=== PATIENT | female | born 1990 ===

== ENCOUNTER 2017-12-02 07:56 | Emergency (ER) | payer MEDICAID ==
[2017-10-12 06:47] VITALS: Ht 160 cm; Wt 11.3 kg
[~2017-12-02] VITALS: Ht 160 cm; Wt 11.3 kg
[~2017-12-02 07:56] MED LIST: AMOX-362 PO; AZIT-1 PO; Acetaminophen/Hydrocodone PO; BENZ200C15 PO; CALC-515 PO; CETI5TAB41 PO; CIPR-344 PO; CLI150 PO; CYCL10TA29 PO; DIC75 PO; HYDR-3083 PO; HYDR-3104 FT; HYDR-4309 PO; IBU800 PO; IBUP600T22 PO; IBUP800T37 PO; KET10 PO; LOR5/325 PO; METO-733 PO; NAPR220C12 PO; NIF10 PO; NIFE10CA38 PO; NO ROUTINE MEDS; OMEP-218 PO; ONDA4TAB PO; PEN250 PO; PENI-24 PO; PNV1TABL92 PO; PREN-119 PO; PREN-127 PO; PREN-85 PO; PROM-110 PO; TRA50 PO
[2017-12-02] MEDS ORDERED: ACETAMINOPHEN 500 MG TAB PO ONE (08:15)
--- NOTE | 2017-12-02 08:16 | ER Report ---
History and Physical Time Seen By MD: 08:12 Hx. of Stated Complaint: PT REPORTS SORE THROAT SINCE THIS MORNING HPI/ROS CHIEF COMPLAINT: Sore throat HISTORY OF PRESENT ILLNESS: 27-year-old female presents with generalized malaise and sore throat worse with swallowing started at 2 in the morning associated with feverish feeling no thermometer at home denies chest pain or shortness of breath denies abdominal pain or urinary symptoms. Denies cough. Denies known infectious exposure. Her baby has not been sick. No vomiting. REVIEW OF SYSTEMS: Respiratory: No cough, no dyspnea. Cardiovascular: No chest pain, no palpitations. Gastrointestinal: No vomiting, no abdominal pain. Musculoskeletal: No back pain. Allergies: Coded Allergies: oxycodone HCl (Verified Allergy, Severe, HIVES, 12/02/17) Home Meds Discontinued Reported Medications Ondansetron (ZOFRAN ODT) 4 Mg Tab.rapdis, 4 MG PO Q12H, TAB.BEVERLY 09/17/17 Omeprazole Magnesium (PRILOSEC OTC) 20 Mg Tablet.dr, 1 TAB PO BID, TAB 09/17/17 Vits W-Ca,Fe,Fa(<1MG) ( VITAMINS) 1 Each Tablet, 1 EACH PO DAILY, TAB 09/17/17 Discontinued Scripts Ibuprofen (IBUPROFEN) 800 Mg Tablet, 1 TAB PO Q8H, #30 TAB 0 Refills Take with food every 8 hours. Prov:ANT ODELL MD 10/13/17 [Apap/Hydrocodone 325/7.5 Tab] 7.5 MG/325 MG TAB No Conflict Check, 1-2 EACH PO Q4-6H Y for PAIN, #30 TAB Prov:ANT ODELL MD 10/13/17 Hx Smoking: No Smoking Status: Never Smoker Exposure to Second Hand Smoke?: No Hx Substance Use Disorder: No Hx Alcohol Use: No Constitutional Vital Sign - Last 24 Hours 12/02/17 12/02/17 12/02/17 12/02/17 07:59 08:00 08:01 08:06 Temp 98.7 Pulse 77 71 80 Resp 16 B/P (MAP) 138/90 (106) 138/90 Pulse Ox 95 95 O2 Delivery Room Air 12/02/17 08:11 Pulse 71 Pulse Ox 95 Physical Exam General Appearance: The patient is alert, has no immediate need for airway protection and no current signs of toxicity. No acute distress Eyes: Pupils equal and round no injection. HEENT: Normal tympanic membranes bilaterally mild posterior pharyngeal erythema without exudate no peritonsillar abscess or uvular shift. The tonsils are not clearly visualized Respiratory: Chest is non tender, lungs are clear to auscultation. Cardiac: regular rate and rhythm no murmurs gallops or rubs Gastrointestinal: Abdomen is soft and non tender, no masses, bowel sounds normal. Musculoskeletal: Neck: Neck is supple and non tender. Extremities have full range of motion and are non tender. Skin: No rashes or lesions. No edema DIFFERENTIAL DIAGNOSIS: After history and physical exam differential diagnosis was considered for pharyngitis of viral strep pharyngitis influenza other viral upper respiratory illness no signs of pneumonia or other serious bacterial illness Medical Decision Making Data Points Laboratory Hematology Test 12/02/17 08:07 Influenza Virus Type A (PCR) Negative (NEGATIVE) Influenza Virus Type B (PCR) Negative (NEGATIVE) Group A Streptococcus Screen Positive (NEGATIVE) Chemistry Test 12/02/17 08:07 Influenza Virus Type A (PCR) Negative (NEGATIVE) Influenza Virus Type B (PCR) Negative (NEGATIVE) Group A Streptococcus Screen Positive (NEGATIVE) ED Course/Re-evaluation ED Course Plan of care agreed upon prior to orders placed. Benefits of Tylenol for generalized malaise were discussed and patient wants to try some here and she has not taken any medications at home so far. Re-evaluation Positive strep test discussed prescription for antibiotics will be provided. Home care follow-up and reasons to return were discussed. Decision to Disposition Date: Dec 02, 2017 Decision to Disposition Time: 09:10 Depart Departure Latest Vital Signs Vital Signs Date Time Temp Pulse Resp B/P (MAP) Pulse Ox O2 Delivery O2 Flow Rate FiO2 12/02/17 08:11 71 95 12/02/17 08:00 98.7 16 138/90 Room Air Impression: Primary Impression: Strep pharyngitis Condition: Improved Disposition: HOME OR SELF-CARE Referrals: ANT ODELL MD (PCP) New Scripts Amoxicillin (AMOXICILLIN) 500 Mg Capsule 1 CAP PO Q8H for 10 Days, #30 CAPSULE 0 Refills Prov: REINA CASTRO MD 12/02/17 Patient Instructions: Strep Throat (ED) REINA CASTRO MD Dec 02, 2017 08:16
[2017-12-02] MEDS ORDERED: AMOX-362 PO (09:11)
[2017-12-02 09:13] VITALS: BP 126/86
== END 2017-12-02 09:15 | disposition home or self-care (01) ==
LOC: ER 07:57
DX: J02.0 Streptococcal pharyngitis (principal)
CPT/HCPCS: 87081; 87502; 87880; 99283

== ENCOUNTER 2017-12-05 20:31 | Emergency (ER) | payer MEDICAID ==
[2017-10-12 06:47] VITALS: Ht 160 cm; Wt 59.0 kg
[~2017-12-05] VITALS: Ht 160 cm; Wt 59.0 kg
--- NOTE | 2017-12-05 20:35 | ER Report ---
History and Physical Time Seen By MD: 20:34 HPI/ROS CHIEF COMPLAINT: Vomiting HISTORY OF PRESENT ILLNESS: 27-year-old female presents to the ER with vomiting over the last 6 hours. 3 days ago. She was seen here in the ER and has a positive strep test and was placed on antibiotics. She is breast-feeding. Patient denies diarrhea, fever or chills. Patient denies dysuria. REVIEW OF SYSTEMS: Respiratory: No cough, no dyspnea. Cardiovascular: No chest pain, no palpitations. Gastrointestinal: As above Musculoskeletal: No back pain. Allergies: Coded Allergies: oxycodone HCl (Verified Allergy, Severe, HIVES, 12/05/17) Home Meds Active Scripts Promethazine Hcl (PROMETHAZINE HCL) 25 Mg Tablet, 25 MG PO Q4H Y for NAUSEA/ VOMITING, #14 TAB Prov:NICKI LAUREANO DO 12/05/17 Ondansetron (ZOFRAN ODT) 4 Mg Tab.rapdis, 4 MG PO every 6 hours Y for NAUSEA/ VOMITING, #12 TAB TAKE 1 TABLET BY MOUTH EVERY 12 HOURS Prov:NICKI LAUREANO DO 12/05/17 Amoxicillin (AMOXICILLIN) 500 Mg Capsule, 1 CAP PO Q8H for 10 Days, #30 CAPSULE 0 Refills Prov:REINA CASTRO MD 12/02/17 Discontinued Reported Medications Ondansetron (ZOFRAN ODT) 4 Mg Tab.rapdis, 4 MG PO Q12H, TAB.BEVERLY 09/17/17 Omeprazole Magnesium (PRILOSEC OTC) 20 Mg Tablet.dr, 1 TAB PO BID, TAB 09/17/17 Vits W-Ca,Fe,Fa(<1MG) ( VITAMINS) 1 Each Tablet, 1 EACH PO DAILY, TAB 09/17/17 Discontinued Scripts Ibuprofen (IBUPROFEN) 800 Mg Tablet, 1 TAB PO Q8H, #30 TAB 0 Refills Take with food every 8 hours. Prov:ANT ODELL MD 10/13/17 [Apap/Hydrocodone 325/7.5 Tab] 7.5 MG/325 MG TAB No Conflict Check, 1-2 EACH PO Q4-6H Y for PAIN, #30 TAB Prov:ANT ODELL MD 10/13/17 Reviewed Nurses Notes: Yes Old Medical Records Reviewed: Yes Hx Smoking: No Smoking Status: Never Smoker Exposure to Second Hand Smoke?: No Hx Substance Use Disorder: No Hx Alcohol Use: No Constitutional Vital Sign - Last 24 Hours 12/05/17 12/05/17 12/05/17 12/05/17 20:44 20:50 21:00 21:05 Temp 99.1 Pulse 97 89 100 Resp 16 B/P (MAP) 143/82 125/90 (102) Pulse Ox 94 94 93 12/05/17 12/05/17 12/05/17 12/05/17 21:20 21:30 21:35 21:50 Pulse 90 93 96 B/P (MAP) ???/??? (1665) Pulse Ox 93 88 96 12/05/17 12/05/17 22:00 22:05 Pulse 91 B/P (MAP) ???/??? (1665) Pulse Ox 95 Physical Exam General Appearance: The patient is alert, has no immediate need for airway protection and no current signs of toxicity. Moderate distress, slightly pale appearing, vital signs stable, afebrile HEENT: Pupils equal and round no injection. Oropharynx with moderate redness or exudative tonsillitis. Respiratory: Chest is non tender, lungs are clear to auscultation. Cardiac: regular rate and rhythm Gastrointestinal: Abdomen is soft and non tender, no masses, bowel sounds normal. Musculoskeletal: Neck: Neck is supple and non tender. Extremities have full range of motion and are non tender. Skin: No rashes or lesions. DIFFERENTIAL DIAGNOSIS: After history and physical exam differential diagnosis was considered for vomiting in a child including but not limited to gastroenteritis, other infectious causes such as pharyngitis, pneumonia, urinary tract infection, also medication side effect, and appendicitis. Medical Decision Making ED Course/Re-evaluation ED Course Patient was admitted to an examination room. H&P was done. The differential diagnoses was considered. On clinical examination, patient is a benign nonsurgical abdomen. She's been vomiting likely secondary to strep pharyngitis. Patient was given Zofran sublingually and then Phenergan. She consumed a Popsicle without emesis. She'll be discharged home on Zofran and Phenergan. Decision to Disposition Date: Dec 05, 2017 Decision to Disposition Time: 21:49 Depart Departure Latest Vital Signs Vital Signs Date Time Temp Pulse Resp B/P (MAP) Pulse Ox O2 Delivery O2 Flow Rate FiO2 12/05/17 22:05 91 95 12/05/17 22:00 ???/??? (1665) 12/05/17 20:44 99.1 16 Impression: Primary Impression: Vomiting Additional Impression: Strep pharyngitis Condition: Improved Disposition: HOME OR SELF-CARE Referrals: ANT ODELL MD (PCP) New Scripts Promethazine Hcl (PROMETHAZINE HCL) 25 Mg Tablet 25 MG PO Q4H Y for NAUSEA/VOMITING, #14 TAB Prov: NICKI LAUREANO DO 12/05/17 Ondansetron (ZOFRAN ODT) 4 Mg Tab.rapdis 4 MG PO every 6 hours Y for NAUSEA/VOMITING, #12 TAB TAKE 1 TABLET BY MOUTH EVERY 12 HOURS Prov: NICKI LAUREANO DO 12/05/17 Patient Instructions: Acute Nausea and Vomiting (ED) Additional Instructions: Follow clear liquid diet for 24 hours, increase sugary fluids and/or popsicles Problem Qualifiers Primary Impression: Vomiting Vomiting type: unspecified Vomiting Intractability: intractable Nausea presence: with nausea Qualified Codes: R11.2 - Nausea with vomiting, unspecified NICKI LAUREANO DO Dec 05, 2017 20:35
[2017-12-05] MEDS ORDERED: PROMETHAZINE HCL 25 MG TAB PO ONE (20:55)
[2017-12-05] MEDS ORDERED: ONDANSETRON 4 MG ODT TABDP SL ONE (20:55)
[2017-12-05] MEDS ORDERED: ONDA4TAB PO (21:52)
[2017-12-05] MEDS ORDERED: PROM-110 PO (21:52)
[2017-12-05] MEDS ORDERED: PROMETHAZINE HCL 25 MG TAB TH 2 TAB/BOTTLE PO ONE (21:55)
[2017-12-05] MEDS ORDERED: ONDANSETRON 4 MG ODT TH SL ONE (21:55)
== END 2017-12-05 22:27 | disposition home or self-care (01) ==
LOC: ER 20:52
DX: J02.0 Streptococcal pharyngitis (principal)
CPT/HCPCS: 99282; Q0169; S0119

== ENCOUNTER 2018-04-05 02:57 | Day surgery (SDC) | payer MEDICAID ==
[2017-10-12 06:47] VITALS: Ht 160 cm; Wt 59.9 kg
--- NOTE | 2018-04-04 23:11 | HISTORY AND PHYSICAL ---
DATE OF ADMISSION: April 05, 2018 CHIEF COMPLAINT Undesired fertility. HISTORY OF PRESENT ILLNESS Patient is approximately a 28-year-old 4, para 4, with undesired fertility. Had discussed options for long-acting reversible contraceptives and other forms of contraception. The patient no longer desires fertility, understands the risks of failure of procedure as well as the risks of surgery, and desires to proceed with laparoscopic bilateral tubal ligation. CURRENT MEDICATIONS * Ibuprofen as needed. ALLERGIES OXYCODONE gives her hives. REVIEW OF SYSTEMS GENITOURINARY: Per HPI. GENERAL, SKIN, EYES, EARS, NOSE, MOUTH, NECK, RESPIRATORY, CARDIOVASCULAR, GASTROINTESTINAL, NEUROLOGIC: All reviewed and noncontributory. PAST MEDICAL HISTORY * HPV. * Allergies. PAST SURGICAL HISTORY * She has had four C-sections. FAMILY HISTORY Noncontributory. SOCIAL HISTORY She does not drink alcohol. She is a nonsmoker. No illicit drug use. She is a homemaker. PHYSICAL EXAMINATION VITAL SIGNS: BP 138/80, temp 98.4, weight 138, height 62-1/2 inches. CONSTITUTIONAL: Well nourished, well developed female in no distress. SKIN: Without rash or lesions. NECK: Supple, without masses. HEART: Regular rate and rhythm. LUNGS: Clear to auscultation bilaterally. ABDOMEN: Soft, nontender, nondistended. Bowel sounds positive. EXTREMITIES: Nontender, no edema. PSYCHIATRIC: Alert and oriented times three. Normal mood and affect. PELVIC: Normal external female genitalia. Well-estrogenized vaginal lining. No adnexal masses. Uterus normal size, nontender. No lesions, and no abnormal discharge. ASSESSMENT AND PLAN Undesired fertility. Plan to perform laparoscopic bilateral tubal ligation via Falope ring. [facility]ENTERPepe
[~2018-04-05] VITALS: Ht 160 cm; Wt 59.9 kg
[2018-04-05 06:00] VITALS: BP 134/95
[2018-04-05 06:22] LABS: PLATELET COUNT, AUTOMATED 282 K/uL (150-450)
[2018-04-05] MEDS ORDERED: FAMOTIDINE 20 MG TAB PO ONE (06:30)
[2018-04-05] MEDS ORDERED: NORMOSOL R SOLN(*) 1000 ML BAG 1,000 ML IV PRN (06:30)
[2018-04-05] MEDS ORDERED: cefOXitin SOD 2 GM VIAL 2 GM in NS(*) 0.9% 100 ML BAG 100 ML IVPB ONE (06:30)
[2018-04-05] MEDS ORDERED: LIDOCAINE/SOD BICARB 8.4% SYR ID ONE (06:30)
[2018-04-05] MEDS ORDERED: CELECOXIB 200 MG CAP PO ONE (06:30)
[2018-04-05] MEDS ORDERED: ROPIVACAINE 0.2% 20 ML VIAL ONE (06:54)
[2018-04-05] MEDS ORDERED: fentaNYL CITR 100 MCG/2 ML AMP ONE ×3 (07:05→08:33)
[2018-04-05] MEDS ORDERED: LIDOCAINE MPF 1% 5 ML VIAL ONE (07:07)
[2018-04-05] MEDS ORDERED: ONDANSETRON 4 MG/2 ML VIAL ONE (07:07)
[2018-04-05] MEDS ORDERED: PROPOFOL EMUL(*) 10MG/ML 20 ML 20 ML ONE (07:07)
[2018-04-05] MEDS ORDERED: PROPOFOL EMUL(*) 10MG/ML 20 ML 60 ML ONE (07:09)
[2018-04-05] MEDS ORDERED: REMIFENTANIL HCL 1 MG VIAL ONE (07:11)
[2018-04-05] MEDS ORDERED: DEXAMETHASONE SOD 4 MG/ML VIAL ONE (07:13)
--- NOTE | 2018-04-05 07:20 | Post Operative Note ---
Operative Note - MIS MANAGER Operative Day Date: Apr 05, 2018 Time: 07:45 Physicians Surgeon: CASS Anesthesia: [id number] Diagnosis Pre-Op Diagnosis: UNDESIRED FERTILITY Post-Op Diagnosis: SAME Procedure Findings: UTERUS 6X5 CM NO ADNEXAL MASSES [id number] Procedure(s): LSCOPE BTL VIA FALLOPE RING Complications: 0 Fluids Fluids: 1000 CC NR IV Estimated Blood Loss: MINIMAL Dictated Date OP Note Dictated: Apr 05, 2018 Time OP Note Dictated: 08:12 Copies to: ANT ODELL MD, JOHN MD Apr 05, 2018 07:20
[2018-04-05] MEDS ORDERED: IBUP800T37 PO (07:22)
[2018-04-05] MEDS ORDERED: HYDR2TAB4 PO (07:22)
[2018-04-05] MEDS ORDERED: ONDA4TAB97 PO (07:22)
--- NOTE | 2018-04-05 07:25 | OB/GYN Discharge Summary ---
Discharge Summary Reason for Hosp/Final Diag: (1) Status post laparoscopic procedure Hospital Course & Plan: UNDESIRED FERTILITY, LSCOPE BTL PERFORMED, TOLERATED WELL Lates Vital Signs Vital Signs Date Time Temp Pulse Resp B/P (MAP) Pulse Ox O2 Delivery O2 Flow Rate FiO2 04/05/18 06:00 98.3 67 16 134/95 (108) 95 Room Air Weight (Pounds): 132 Result Diagram: 04/05/18612 Condition: Improved Discharge: Home, Self [facility] Meds Active Scripts Ondansetron Hcl (ZOFRAN) 4 Mg Tablet, 1 TAB PO Q6H Y for NAUSEA/VOMITING, #20 TAB 1 Refill Prov:ANT DELGADO MD 04/05/18 Ibuprofen (IBUPROFEN) 800 Mg Tablet, 1 TAB PO Q8H, #30 TAB 0 Refills Take with food every 8 hours. Prov:ANT DELGADO MD 04/05/18 Hydromorphone Hcl (HYDROMORPHONE HCL) 2 Mg Tablet, 2-4 MG PO Q4H for PAIN, #20 TAB 0 Refills Prov:ANT DELGADO MD 04/05/18 Discontinued Scripts Promethazine Hcl (PROMETHAZINE HCL) 25 Mg Tablet, 25 MG PO Q4H Y for NAUSEA/ VOMITING, #14 TAB Prov:NICKI LAUREANO DO 12/05/17 Ondansetron (ZOFRAN ODT) 4 Mg Tab.rapdis, 4 MG PO every 6 hours Y for NAUSEA/ VOMITING, #12 TAB TAKE 1 TABLET BY MOUTH EVERY 12 HOURS Prov:NICKI LAUREANO DO 12/05/17 Amoxicillin (AMOXICILLIN) 500 Mg Capsule, 1 CAP PO Q8H for 10 Days, #30 CAPSULE 0 Refills Prov:REINA CASTRO MD 12/02/17 Follow up with: Dr. Delgado [phone] Follow up in: 2 wks PO Discharge Diet: As Tolerates Discharge Activity: Pelvic Rest Copies to: ANT DELGADO MD, JOHN MD Apr 05, 2018 07:25
[2018-04-05] MEDS ORDERED: SUGAMMADEX SOD 200 MG/2 ML SDV ONE (07:51)
[2018-04-05] MEDS ORDERED: ROCURONIUM BROM 10 MG/ML 5 ML ONE (08:00)
[2018-04-05] MEDS ORDERED: LR(*) 1000 ML BAG 1,000 ML IV ONE (08:04)
[2018-04-05] MEDS ORDERED: HYDROmorphone HCL 2 MG TAB PO PRN (08:05)
[2018-04-05] MEDS ORDERED: METOCLOPRAMIDE 10 MG/2 ML SDV IVP PRN (08:05)
[2018-04-05] MEDS ORDERED: MIDAZOLAM 2 MG/2 ML VIAL IVP PRN (08:15)
[2018-04-05] MEDS ORDERED: IBUPROFEN 800 MG TAB PO SCH ×2 (09:00→17:00)
--- NOTE | 2018-04-05 09:13 | OPERATIVE REPORT 1 ---
EVENT DATE: 04/05/18 SURGEON: Ramesh Delgado M.D. ANESTHESIOLOGIST: _ ANESTHESIA: General PREOPERATIVE DIAGNOSIS 1. End desired fertility. POSTOPERATIVE DIAGNOSIS 1. End desired fertility. PROCEDURE PERFORMED 1. Laparoscopic bilateral tubal ligation via Falope ring. ESTIMATED BLOOD LOSS: Minimal. COMPLICATIONS: None. FLUIDS: 1000 cc of normal saline. INDICATIONS: The patient is a 28 year old 4 desired fertility. I had discussed options with patient and she no longer desires fertility and wished to proceed with permanent sterilization. Understands risk of failure as well as risk of surgery and wishes to proceed. FINDINGS: Uterus 6 x 5 cm. No adnexal masses. DESCRIPTION OF PROCEDURE: After informed consent was obtained the patient was taken to the operating room with the IV running, placed in supine position where general anesthesia was obtained without difficulty. She was then placed in [facility] stirrups, examined under anesthesia with the above findings, prepped and draped in the usual fashion. A side-out speculum was placed into the vagina, cervix grasped with a single tooth tenaculum. The uterus sounded to 7 cm. #6 Yessy uterine manipulator was advanced into the uterine cavity ti provide a means to manipulate the uterus. The remainder of the instruments were removed from the vagina. Legs were lowered. Attention then turned to the abdomen. 0.2 Naropin was infiltrated into the umbilicus. A skin incision was made with the scalpel. Veress needle was advanced into the abdominal cavity. Normal CO2 filling pressures were noted. After adequate insufflation a 5 mm bladeless trocar was advanced into the abdomen under laparoscopic guidance. Intraabdominal placement was confirmed by laparoscopy and no injuries were noted at the time of entry. A #8 port was then placed in a similar fashion after 0.2 Naropin infiltrated in the skin incision. Skin incision was made with the scalpel and the 8 mm bladeless trocar was advanced under direct visualization. After this was placed the patient was placed in Trendelenburg positioning. Bowel was allowed to escape from the pelvis. Identification of the tubes and ovaries revealed normal anatomy, normal appearing uterus, no abnormalities were noted in the abdomen or pelvis. The Falope ring applicator was then used to grasp the mid portion of the left tube and the tube was drawn into the Falope ring applicator and the Falope ring applied. The same procedure was performed on the right, grasping the mid portion of the tube, drawing the tube into the Falope ring applicator. The Falope ring was applied. Excellent placement was noted and the gas was allowed to escape from the abdomen. The patient was taken out of Trendelenburg positioning. All instruments were removed from the abdomen. The skin incisions were closed with 4/0 Monocryl and Dermabond. The patient was taken out of the [facility], awakened from anesthesia, and taken to the recovery room in stable condition. MARIO
[2018-04-05 09:35] VITALS: BP 147/109
[2018-04-05 09:55] VITALS: BP 144/94
[2018-04-05 09:57] VITALS: BP 129/84
[2018-04-05] MEDS ORDERED: KETOROLAC 30 MG/ML VIAL IVP ONE (10:25)
[2018-04-05] MEDS ORDERED: PROMETHAZINE 25 MG/ML 1 ML AMP ONE (10:41)
== END 2018-04-05 09:39 | disposition home or self-care (01) ==
LOC: OR 02:57
PROVIDERS: ATTEND Obstetrics & Gynecology
DX: Z30.2 Encounter for sterilization (principal); Z88.5 Allergy status to narcotic agent; Z88.8 Allergy status to other drugs, medicaments and biological substances
CPT/HCPCS: 36415; 58671; 84703; 85025; J0694; J1100; J1885; J2001; J2250; J2405; J2550; J2704; J2795; J3010; J7050

== ENCOUNTER 2018-04-27 00:09 | Emergency (ER) | payer MEDICAID ==
[2017-10-12 06:47] VITALS: Wt 59.9 kg
[~2018-04-27 00:09] MED LIST changes: +HYDR2TAB4 PO; +ONDA4TAB97 PO
--- NOTE | 2018-04-27 00:13 | ER Report ---
History and Physical Time Seen By MD: 00:13 HPI/ROS CHIEF COMPLAINT: Right lower toothache HISTORY OF PRESENT ILLNESS: 28-year-old female resents ambulatory to the ER complaining of right lower toothache for 2 days. It was unbearable tonight she is unable to sleep. She is here with her 6-month-old infant child from her recent delivery. She is breast-feeding. He notes 9/10 throbbing pain unrelieved with ibuprofen orally. Patient notes no fever or chills. She denies difficulty swallowing or breathing. He reports the right lower tooth has previously had a filling has been throbbing since 2 days ago. Patient notes no nausea or vomiting. REVIEW OF SYSTEMS: Respiratory: No cough, no dyspnea. Cardiovascular: No chest pain, no palpitations. Gastrointestinal: No vomiting, no abdominal pain. Musculoskeletal: No back pain. Allergies: Coded Allergies: oxycodone HCl (Verified Allergy, Severe, HIVES, 04/27/18) Home Meds Active Scripts Hydromorphone Hcl (DILAUDID) 2 Mg Tablet, 2 MG PO Q4H Y for PAIN, #12 Prov:NICKI LAUREANO DO 04/27/18 Amoxicillin (AMOXICILLIN) 500 Mg Capsule, 1 CAP PO Q8H for infection, #30 CAPSULE Prov:NICKI LUAREANO DO 04/27/18 Reported Medications Escitalopram Oxalate (LEXAPRO) 20 Mg Tablet, 10 MG PO QDAY, TAB 04/27/18 Discontinued Scripts Hydrocodone Bit/Acetaminophen (NORCO 5-325 TABLET) 1 Each Tablet, 1-2 EACH PO Q4H Y for PAIN, #15 TAB Prov:NICKI LAUREANO DO 04/27/18 Ondansetron Hcl (ZOFRAN) 4 Mg Tablet, 1 TAB PO Q6H Y for NAUSEA/VOMITING, #20 TAB 1 Refill Prov:ANT ODELL MD 04/05/18 Ibuprofen (IBUPROFEN) 800 Mg Tablet, 1 TAB PO Q8H, #30 TAB 0 Refills Take with food every 8 hours. Prov:ANT ODELL MD 04/05/18 Hydromorphone Hcl (HYDROMORPHONE HCL) 2 Mg Tablet, 2-4 MG PO Q4H for PAIN, #20 TAB 0 Refills Prov:ANT ODELL MD 04/05/18 Reviewed Nurses Notes: Yes Old Medical Records Reviewed: Yes Hx Smoking: No Smoking Status: Never Smoker Exposure to Second Hand Smoke?: No Hx Substance Use Disorder: No Hx Alcohol Use: No Constitutional Vital Sign - Last 24 Hours 04/27/18 04/27/18 00:14 01:34 Temp 97.7 Pulse 67 84 Resp 16 16 B/P (MAP) 140/77 131/78 (95) Pulse Ox 92 94 O2 Delivery Room Air Room Air Physical Exam General Appearance: The patient is alert, has no immediate need for airway protection and no current signs of toxicity. Vital signs stable, afebrile, pulse ox normal, moderate distress HEENT: Pupils equal and round no injection. TMs normal, TMJs nontender, examination of the oropharynx reveals a tooth that is tender to palpation with a tongue blade at position #31 with multiple fillings in it Respiratory: Chest is non tender, lungs are clear to auscultation. Cardiac: regular rate and rhythm Gastrointestinal: Abdomen is soft and non tender, no masses, bowel sounds normal. Musculoskeletal: Neck: Neck is supple and non tender. No lymphadenopathy noted Extremities have full range of motion and are non tender. Skin: No rashes or lesions. DIFFERENTIAL DIAGNOSIS: After history and physical exam differential diagnosis was considered for toothache, tooth abscess, dental pain, TMJ disorder, sinus infection, pharyngitis, viral syndrome, lymphadenitis Medical Decision Making ED Course/Re-evaluation ED Course Patient was admitted to an examination room. H&P was done. The dental diagnoses was considered. Patient with an acute toothache for 2 days. Patient be treated with amoxicillin. She's given 1000 mg here by mouth she'll be given a prescription for 500 mg 3 times a day. Patient has an allergy to oxycodone. She was recently prescribed Dilaudid for her tubal ligation. She tolerates that well. She'll be given a prescription for Dilaudid 2 mg. She is advised to follow-up with her dentist as soon as possible. She states she does have a dentist. Decision to Disposition Date: Apr 27, 2018 Decision to Disposition Time: 01:25 Depart Departure Latest Vital Signs Vital Signs Date Time Temp Pulse Resp B/P (MAP) Pulse Ox O2 Delivery O2 Flow Rate FiO2 04/27/18 01:34 84 16 131/78 (95) 94 Room Air 04/27/18 00:14 97.7 Impression: Primary Impression: Toothache Additional Impression: Normal breast feeding Condition: Improved Disposition: HOME OR SELF-CARE Referrals: ANT ODELL MD (PCP) New Scripts Hydromorphone Hcl (DILAUDID) 2 Mg Tablet 2 MG PO Q4H Y for PAIN, #12 Prov: NICKI LAUREANO DO 04/27/18 Amoxicillin (AMOXICILLIN) 500 Mg Capsule 1 CAP PO Q8H for infection, #30 CAPSULE Prov: NICKI LAUREANO DO 04/27/18 Patient Instructions: Toothache (ED) Additional Instructions: Take ibuprofen 200 mg 3 tablets 3 times a day with food Apply warm compresses to the affected area Follow-up with a dentist as soon as possible Problem Qualifiers NCIKI LAUREANO DO Apr 27, 2018 00:13
[2018-04-27] MEDS ORDERED: ESCI20TA38 PO (00:14)
[2018-04-27] MEDS ORDERED: HYDR-4309 PO (01:28)
[2018-04-27] MEDS ORDERED: AMOX-362 PO (01:28)
[2018-04-27] MEDS ORDERED: HYDROmorphone 2 MG TAB TH 2 TAB/BOTTLE PO ONE (01:30)
[2018-04-27] MEDS ORDERED: AMOXICILLIN 500 MG CAP PO ONE (01:30)
[2018-04-27] MEDS ORDERED: HYDR2TAB74 PO (01:30)
[2018-04-27 01:34] VITALS: BP 131/78
== END 2018-04-27 01:34 | disposition home or self-care (01) ==
LOC: ER 00:26
DX: K08.89 Other specified disorders of teeth and supporting structures (principal); Z88.5 Allergy status to narcotic agent
CPT/HCPCS: 99282; A9270

== ENCOUNTER 2018-05-16 06:41 | Emergency (ER) | payer MEDICAID ==
[2017-10-12 06:47] VITALS: Wt 59.9 kg
[~2018-05-16 06:41] MED LIST changes: +ESCI20TA38 PO; +HYDR2TAB74 PO
[2018-05-16] MEDS ORDERED: IBUPROFEN 600 MG TAB PO ONE (07:10)
[2018-05-16] MEDS ORDERED: APAP/HYDROCODONE 325/5 TAB PO ONE (07:10)
[2018-05-16] MEDS ORDERED: CIPDEXPT RIGHT EAR (07:18)
[2018-05-16] MEDS ORDERED: HYDR-4309 PO (07:18)
[2018-05-16] MEDS ORDERED: AMOX-362 PO (07:18)
--- NOTE | 2018-05-16 07:20 | ER Report ---
History and Physical Time Seen By MD: 07:30 Hx. of Stated Complaint: pt reports cough and congestion and onset of R side earache last night HPI/ROS CHIEF COMPLAINT: earache, congestion HISTORY OF PRESENT ILLNESS: pt awoke in middle of night with r sided earrache, has been constant, worsening, not draining, decreased hearing, no ringing. no prior similar events. REVIEW OF SYSTEMS: Constitutional: No fever, no chills. Eyes: No discharge. ENT: No sore throat. Cardiovascular: No chest pain, no palpitations. Respiratory: No cough, no shortness of breath. Gastrointestinal: No abdominal pain, no vomiting. Genitourinary: No hematuria. Musculoskeletal: No back pain. Skin: No rashes. Neurological: No headache. Remainder of the 14 system rev: Yes Allergies: Coded Allergies: oxycodone HCl (Verified Allergy, Severe, HIVES, 04/27/18) Home Meds Active Scripts Ciprofloxacin/Dexamethasone 0.3%-0.1% Otic Padilla (CIPRODEX 0.3%-0.1% OTIC SUSP) 7.5 Ml Soln, 7.5 ML RIGHT EAR BID for 7 Days, #7.5 ML Prov:JANIS SU MD 05/16/18 Hydrocodone Bit/Acetaminophen (NORCO 5-325 TABLET) 1 Each Tablet, 1 EACH PO Q6H Y for SEVERE PAIN for 5 Days, #10 TAB Prov:JANIS SU MD 05/16/18 Amoxicillin (AMOXICILLIN) 500 Mg Capsule, 2 CAP PO Q8H for 7 Days, #42 CAPSULE 0 Refills Prov:JANIS SU MD 05/16/18 Reported Medications Escitalopram Oxalate (LEXAPRO) 20 Mg Tablet, 10 MG PO QDAY, TAB 04/27/18 Discontinued Scripts Hydromorphone Hcl (DILAUDID) 2 Mg Tablet, 2 MG PO Q4H Y for PAIN, #12 Prov:NICKI LAUREANO DO 04/27/18 Amoxicillin (AMOXICILLIN) 500 Mg Capsule, 1 CAP PO Q8H for infection, #30 CAPSULE Prov:NICKI LAUREANO DO 04/27/18 Hx Smoking: Yes Smoking Status: Never Smoker Exposure to Second Hand Smoke?: No Hx Substance Use Disorder: No Hx Alcohol Use: No Constitutional Vital Sign - Last 24 Hours 05/16/18 05/16/18 06:46 07:33 Temp 98.1 Pulse 74 80 Resp 16 16 B/P (MAP) 147/81 140/90 (107) Pulse Ox 96 97 O2 Delivery Room Air Room Air Physical Exam General Appearance: [The patient is alert, has no immediate need for airway protection and no signs of toxicity.] pt appears mildly uncomfortable, holding r ear Eyes: Pupils equal and round no pallor or injection. ENT, Mouth: mmm, op wnl, l tm nl, r tm bulging, purulent drainage behind tm. Canal clear Respiratory: There are no retractions, lungs are clear to auscultation. Cardiovascular: Regular rate and rhythm. [ ] Gastrointestinal: Neurological: alert, oriented, moves all ext Skin: Warm and dry, no rashes. Musculoskeletal: Neck is supple non tender. Extremities are nontender, nonswollen and have full range of motion. no lymphadenopathy DIFFERENTIAL DIAGNOSIS: After history and physical exam differential diagnosis was considered for otitis media, complications of otitis including meningitis, abscess, IJ thrombophlebitis, Medical Decision Making ED Course/Re-evaluation ED Course Sgs/symptoms c/w otitis media of r tm. Will place on abx, supportive tx and d/c with SRp's for complications of OM. No e/o tm rupture or complications at this point. Decision to Disposition Date: May 16, 2018 Decision to Disposition Time: 12:45 Depart Departure Latest Vital Signs Vital Signs Date Time Temp Pulse Resp B/P (MAP) Pulse Ox O2 Delivery O2 Flow Rate FiO2 05/16/18 07:33 80 16 140/90 (107) 97 Room Air 05/16/18 06:46 98.1 Impression: Primary Impression: Otitis media Condition: Improved Disposition: HOME OR SELF-CARE Referrals: ANT ODELL MD (PCP) New Scripts Ciprofloxacin/Dexamethasone 0.3%-0.1% Otic Padilla (CIPRODEX 0.3%-0.1% OTIC SUSP) 7.5 Ml Soln 7.5 ML RIGHT EAR BID for 7 Days, #7.5 ML Prov: JANIS SU MD 05/16/18 Hydrocodone Bit/Acetaminophen (NORCO 5-325 TABLET) 1 Each Tablet 1 EACH PO Q6H Y for SEVERE PAIN for 5 Days, #10 TAB Prov: JANIS SU MD 05/16/18 Amoxicillin (AMOXICILLIN) 500 Mg Capsule 2 CAP PO Q8H for 7 Days, #42 CAPSULE 0 Refills Prov: JANIS SU MD 05/16/18 Departure Forms: Medications Reconciliation, Patient Portal Information, ER Transition Record Patient Instructions: Otitis Media (ED) Additional Instructions: Please return immediately for worsening symptoms including increasing headache, fevers/chills, adverse effect of medications as in medication instructions, or any concerns. Problem Qualifiers Primary Impression: Otitis media Otitis media type: suppurative Chronicity: acute Laterality: right Recurrence: not specified as recurrent Spontaneous tympanic membrane rupture: without spontaneous rupture Qualified Codes: H66.001 - Acute suppurative otitis media without spontaneous rupture of ear drum, right ear JANIS SU MD May 16, 2018 07:20
[2018-05-16 07:33] VITALS: BP 140/90
== END 2018-05-16 07:35 | disposition home or self-care (01) ==
LOC: ER 07:05
DX: H66.91 Otitis media, unspecified, right ear (principal)
CPT/HCPCS: 99283

== ENCOUNTER 2018-09-25 13:39 | Emergency (ER) | payer MEDICAID ==
[2017-10-12 06:47] VITALS: Wt 63.5 kg
[~2018-09-25 13:39] MED LIST changes: +CIPDEXPT RIGHT EAR; -HYDR-4309 PO; +HYDR-653 PO
[2018-09-25 13:47] VITALS: BP 119/78
--- NOTE | 2018-09-25 13:48 | ER Report ---
History and Physical Time Seen By MD: 13:49 HPI/ROS CHIEF COMPLAINT: Right wrist injury HISTORY OF PRESENT ILLNESS: This is a 28-year-old female presents to the emergency department for a right wrist injury. Patient states that four days ago she was walking her dog, had the leash wrapped around her right wrist, the dog ran off, injuring her left wrist. She does have some mild discomfort the right trapezium, mild shoulder discomfort no loss of range of motion shoulder. She does however have decreased range of motion with flexion and extension of the right wrist. No obvious deformities. No fevers. No chest pain or shortness of breath. REVIEW OF SYSTEMS: Respiratory: No cough, no dyspnea. Cardiovascular: No chest pain, no palpitations. Gastrointestinal: No vomiting, no abdominal pain. Musculoskeletal: As above. Allergies: Coded Allergies: oxycodone HCl (Verified Allergy, Severe, HIVES, 04/27/18) Home Meds Discontinued Reported Medications Escitalopram Oxalate (LEXAPRO) 20 Mg Tablet, 10 MG PO QDAY, TAB 04/27/18 Discontinued Scripts Ciprofloxacin/Dexamethasone 0.3%-0.1% Otic Padilla (CIPRODEX 0.3%-0.1% OTIC SUSP) 7.5 Ml Soln, 7.5 ML RIGHT EAR BID for 7 Days, #7.5 ML Prov:JANIS SU MD 05/16/18 Hydrocodone Bit/Acetaminophen (NORCO 5-325 TABLET) 1 Each Tablet, 1 EACH PO Q6H PRN for SEVERE PAIN for 5 Days, #10 TAB Prov:JANIS SU MD 05/16/18 Amoxicillin (AMOXICILLIN) 500 Mg Capsule, 2 CAP PO Q8H for 7 Days, #42 CAPSULE 0 Refills Prov:JANIS SU MD 05/16/18 Past Medical/Surgical History The patient has a past medical and surgical history of a , tubal ligation. Reviewed Nurses Notes: Yes Hx Smoking: Yes Smoking Status: Never Smoker Exposure to Second Hand Smoke?: No Hx Substance Use Disorder: No Hx Alcohol Use: No Constitutional Vital Sign - Last 24 Hours 09/25/18 13:47 Temp 98.3 Pulse 75 Resp 16 B/P (MAP) 119/78 Pulse Ox 97 O2 Delivery Room Air Physical Exam General Appearance: The patient is alert, has no immediate need for airway protection and no current signs of toxicity. Eyes: Pupils equal and round no injection. Respiratory: Chest is non tender, lungs are clear to auscultation. Cardiac: regular rate and rhythm. Gastrointestinal: Abdomen is soft and non tender, no masses, bowel sounds normal. Musculoskeletal: Neck: Neck is supple and non tender. Extremities Examination of the Right hand reveals no acute deformity. The patient is able to give a thumbs up sign, is able to make an okay sign, and is able to AB duct the fingers. Sensation is intact over the dorsal 1st web space, the volar aspect of the 2nd finger, and the volar aspect of the 5th finger. Capillary refill is brisk. No crepitus or obvious deformities. Skin: No rashes or lesions. DIFFERENTIAL DIAGNOSIS: After history and physical exam differential diagnosis was considered for fracture, subluxation, contusion and strain. Medical Decision Making EKG/Imaging Imaging Exam type: WRIST RIGHT MIN 3 VIEW History: Fell walking dog x1 day pain on medial aspect of wrist Comparison: None. Findings: There is no evidence of acute fracture or dislocation seen. No radiopaque foreign bodies identified. If patient's symptoms persist pop imaging recommended to exclude an occult injury IMPRESSION: 1. No evidence of acute fracture dislocation seen. Follow-up imaging recommended if symptoms persist Report Dictated By: July Mix MD at 09/25/2018 2:39 PM Report E-Signed By: July Mix MD at 09/25/2018 2:41 PM WSN:CHRISTIAN ED Course/Re-evaluation ED Course The patient was admitted to room. A history and physical were obtained. Differential diagnoses were considered. An x-ray of the right wrist was negative for any acute osseous abnormalities. The imaging results were reviewed with the patient, patient was placed in a wrist splint for comfort. Patient was instructed to remove the splint every hour and perform range of motion exercises, she was also instructed follow-up with [facility] for reevaluation should the pain persist. Take ibuprofen or Tylenol. Patient was in agreement with this plan of care and discharged home. Decision to Disposition Date: Sep 25, 2018 Decision to Disposition Time: 14:53 Depart Departure Latest Vital Signs Vital Signs Date Time Temp Pulse Resp B/P (MAP) Pulse Ox O2 Delivery O2 Flow Rate FiO2 09/25/18 13:47 98.3 75 16 119/78 97 Room Air Impression: Primary Impression: Right wrist sprain Condition: Improved Disposition: HOME OR SELF-CARE Referrals: ANT ODELL MD (PCP) [facility] New Scripts No Active Prescriptions or Reported Meds Patient Instructions: Active Range of Motion Exercises (GEN), Wrist Sprain (ED) Additional Instructions: There is no evidence of fracture or dislocation noted on your Xray today. Please wear the wrist splint for comfort, you will need to remove the splint every hour and perform gentle range of motion exercises. Take Ibuprofen or Tylenol as needed for pain. Drink plenty of water. If the pain is persistent, please follow up with [facility] for reevaluation. Return to the ED for any other concerns or worsening symptoms. Problem Qualifiers Primary Impression: Right wrist sprain Encounter type: initial encounter Qualified Codes: S63.501A - Unspecified sprain of right wrist, initial encounter ABRAHAN THOMAS SENIOR PRODUCT ENGINEER-BC Sep 25, 2018 13:48
--- NOTE | 2018-09-25 14:46 | RADIOLOGY IMAGING REPORT ---
FACILITY: [facility] PATIENT NAME: Radha Cali : 1990 MR: [id number] V: [id number] EXAM DATE: ORDERING PHYSICIAN: ABRAHAN THOMAS TECHNOLOGIST: Location: [facility] - [place] Patient: Radha Cali : 1990 Visit/Account:[id number] Date of Sevice: 09/25/2018 Exam type: WRIST RIGHT MIN 3 VIEW History: Fell walking dog x1 day pain on medial aspect of wrist Comparison: None. Findings: There is no evidence of acute fracture or dislocation seen. No radiopaque foreign bodies identified. If patient's symptoms persist pop imaging recommended to exclude an occult injury IMPRESSION: 1. No evidence of acute fracture dislocation seen. Follow-up imaging recommended if symptoms persis t Report Dictated By: July Mix MD at 09/25/2018 2:39 PM Report E-Signed By: July Mix MD at 09/25/2018 2:41 PM WSN:CHRISTIAN
== END 2018-09-25 15:05 | disposition home or self-care (01) ==
LOC: ER 13:52
DX: S63.501A Unspecified sprain of right wrist, initial encounter (principal)
CPT/HCPCS: 73110; 99283; L3908

== ENCOUNTER 2019-03-11 08:59 | Emergency (ER) | payer SELFPAY ==
[2017-10-12 06:47] VITALS: Wt 61.2 kg
--- NOTE | 2019-03-11 09:01 | ER Report ---
History and Physical Time Seen By MD: 09:00 HPI/ROS CHIEF COMPLAINT: sweats, vomiting, dehydration HISTORY OF PRESENT ILLNESS: Patient is a 28-year-old female who presents emergency Department with 2-3 days of nausea vomiting and body aches, headache and sore throat. He did have an ill contact with her niece who was recently diagnosed with croup. She states that she feels dehydrated. She is currently breast-feeding a 1-year-old home and is concerned that she is not producing enough milk because of dehydration. She denies any abdominal pain. She does admit to hacking cough. He denies any fevers or chills. She denies chest pain or chest pressure. REVIEW OF SYSTEMS: Constitutional: No fever, no chills. Eyes: No discharge. ENT: No sore throat. Cardiovascular: No chest pain, no palpitations. Respiratory: Hacking cough Gastrointestinal: No abdominal pain, nausea, vomiting Genitourinary: No hematuria. Musculoskeletal: No back pain. Skin: No rashes. Neurological: Headache Allergies: Coded Allergies: oxycodone HCl (Verified Allergy, Severe, HIVES, 04/27/18) Home Meds Active Scripts Ondansetron Hcl (ZOFRAN) 4 Mg Tablet, 4 MG PO Q8H for Nausea, #15 TAB 0 Refills Prov:JANIS SAAB MD 03/11/19 Amoxicillin (AMOXICILLIN) 500 Mg Capsule, 2 CAP PO BID for 14 Days, #56 CAPSULE 0 Refills Prov:JANIS SAAB MD 03/11/19 Clarithromycin (CLARITHROMYCIN) 500 Mg Tablet, 500 MG PO BID, #28 TAB 0 Refills Prov:JANIS SAAB MD 03/11/19 Pantoprazole Sodium (PANTOPRAZOLE SODIUM) 40 Mg Tablet.dr, 40 MG PO QDAY for 14 Days, #14 TAB.SR 0 Refills Prov:JANIS SAAB MD 03/11/19 Past Medical/Surgical History Noncontributory Hx Smoking: Yes Smoking Status: Never Smoker Exposure to Second Hand Smoke?: No Hx Substance Use Disorder: No Hx Alcohol Use: No Constitutional Vital Sign - Last 24 Hours 03/11/19 03/11/19 03/11/19 03/11/19 09:04 09:04 09:19 09:20 Temp 97.9 Pulse 101 98 93 Resp 18 14 B/P (MAP) 130/82 (98) 130/82 Pulse Ox 90 90 O2 Delivery Room Air 03/11/19 03/11/19 03/11/19 09:30 11:09 11:09 Pulse 94 Resp 14 B/P (MAP) 117/72 (87) Pulse Ox 93 O2 Delivery Room Air Physical Exam General Appearance: The patient is alert, has no immediate need for airway protection and no signs of toxicity. Eyes: Pupils equal and round no pallor or injection. ENT, Mouth: Mucous membranes are moist. Respiratory: There are no retractions, lungs are noted for wheeze with cough Cardiovascular: Regular rate and rhythm. Gastrointestinal: Abdomen is soft and non tender, no masses, bowel sounds normal. Neurological: Awake and alert Skin: Warm and dry, no rashes. Musculoskeletal: Neck is supple non tender. Extremities are nontender, nonswollen and have full range of motion. Medical Decision Making Data Points Result Diagram: 03/11/19 0935 03/11/19 0900 Laboratory Hematology Test 03/11/19 09:00 03/11/19 09:02 03/11/19 09:35 03/11/19 09:42 Sodium Level 142 mmol/L (137-145) Potassium Level 3.1 mmol/L (3.5-5.0) Chloride Level 109 mmol/L (98-107) Carbon Dioxide Level 21 mmol/L (22-31) Blood Urea Nitrogen 9 mg/dl (7-18) Creatinine 0.50 mg/dl (0.52-1.04) Glomerular Filtration Rate Calc > 60.0 Random Glucose 106 mg/dl (75-110) Calcium Level 9.2 mg/dl (8.4-10.2) Total Bilirubin 1.2 mg/dl (0.2-1.3) Aspartate Amino Transf (AST/SGOT) 19 U/L (0-35) Alanine Aminotransferase (ALT/SGPT) 28 U/L (0-56) Alkaline Phosphatase 102 U/L (0-126) Total Protein 8.1 g/dl (6.3-8.2) Albumin 4.6 g/dl (3.5-5.0) Lipase 29 U/L (23-300) Urine Color Yellow Urine Clarity Slightly-cloudy Urine pH 5.0 pH (4.8-9.5) Urine Specific Evergreen 1.026 Urine Protein 30 mg/dL (NEGATIVE) Urine Glucose (UA) Negative mg/dL (NEGATIVE) Urine Ketones Trace mg/dL (NEGATIVE) Urine Blood Small (NEGATIVE) Urine Nitrite Negative (NEGATIVE) Urine Bilirubin Negative (NEGATIVE) Urine Urobilinogen 2.0 mg/dL (0.2-1.9) Urine Leukocyte Esterase Negative (NEGATIVE) Urine RBC 5 /HPF (0-2/HPF) Urine WBC 4 /HPF (0-5/HPF) Urine Squamous Epithelial Cells Many /LPF (</=FEW) Urine Bacteria Few /HPF (NONE-FEW) Urine Mucus Few /HPF (NONE-FEW) Red Blood Count 4.81 M/uL (4.17-5.56) Mean Corpuscular Volume 91.0 fL (80.0-96.0) Mean Corpuscular Hemoglobin 31.7 pg (26.0-33.0) Mean Corpuscular Hemoglobin Concent 34.8 g/dL (32.0-36.0) Red Cell Distribution Width 13.4 % (11.5-14.5) Mean Platelet Volume 7.9 fL (7.2-11.1) Neutrophils (%) (Auto) 85.3 % (39.4-72.5) Lymphocytes (%) (Auto) 9.5 % (17.6-49.6) Monocytes (%) (Auto) 3.4 % (4.1-12.4) Eosinophils (%) (Auto) 1.5 % (0.4-6.7) Basophils (%) (Auto) 0.3 % (0.3-1.4) Nucleated RBC Relative Count (auto) 0.0 /100WBC Neutrophils # (Auto) 8.7 K/uL (2.0-7.4) Lymphocytes # (Auto) 1.0 K/uL (1.3-3.6) Monocytes # (Auto) 0.3 K/uL (0.3-1.0) Eosinophils # (Auto) 0.1 K/uL (0.0-0.5) Basophils # (Auto) 0.0 K/uL (0.0-0.1) Nucleated RBC Absolute Count (auto) 0.00 K/uL Human Chorionic Gonadotropin, Qual Negative (NEGATIVE) Helicobacter pylori IgG Antibody Positive (NEGATIVE) Influenza Virus Type A (PCR) Negative (NEGATIVE) Influenza Virus Type B (PCR) Negative (NEGATIVE) Chemistry Test 03/11/19 09:00 03/11/19 09:02 03/11/19 09:35 03/11/19 09:42 Glomerular Filtration Rate Calc > 60.0 Calcium Level 9.2 mg/dl (8.4-10.2) Total Bilirubin 1.2 mg/dl (0.2-1.3) Aspartate Amino Transf (AST/SGOT) 19 U/L (0-35) Alanine Aminotransferase (ALT/SGPT) 28 U/L (0-56) Alkaline Phosphatase 102 U/L (0-126) Total Protein 8.1 g/dl (6.3-8.2) Albumin 4.6 g/dl (3.5-5.0) Lipase 29 U/L (23-300) Urine Color Yellow Urine Clarity Slightly-cloudy Urine pH 5.0 pH (4.8-9.5) Urine Specific Evergreen 1.026 Urine Protein 30 mg/dL (NEGATIVE) Urine Glucose (UA) Negative mg/dL (NEGATIVE) Urine Ketones Trace mg/dL (NEGATIVE) Urine Blood Small (NEGATIVE) Urine Nitrite Negative (NEGATIVE) Urine Bilirubin Negative (NEGATIVE) Urine Urobilinogen 2.0 mg/dL (0.2-1.9) Urine Leukocyte Esterase Negative (NEGATIVE) Urine RBC 5 /HPF (0-2/HPF) Urine WBC 4 /HPF (0-5/HPF) Urine Squamous Epithelial Cells Many /LPF (</=FEW) Urine Bacteria Few /HPF (NONE-FEW) Urine Mucus Few /HPF (NONE-FEW) White Blood Count 10.2 k/uL (4.5-11.0) Red Blood Count 4.81 M/uL (4.17-5.56) Hemoglobin 15.2 g/dL (12.0-16.0) Hematocrit 43.8 % (34.0-47.0) Mean Corpuscular Volume 91.0 fL (80.0-96.0) Mean Corpuscular Hemoglobin 31.7 pg (26.0-33.0) Mean Corpuscular Hemoglobin Concent 34.8 g/dL (32.0-36.0) Red Cell Distribution Width 13.4 % (11.5-14.5) Platelet Count 212 K/uL (150-450) Mean Platelet Volume 7.9 fL (7.2-11.1) Neutrophils (%) (Auto) 85.3 % (39.4-72.5) Lymphocytes (%) (Auto) 9.5 % (17.6-49.6) Monocytes (%) (Auto) 3.4 % (4.1-12.4) Eosinophils (%) (Auto) 1.5 % (0.4-6.7) Basophils (%) (Auto) 0.3 % (0.3-1.4) Nucleated RBC Relative Count (auto) 0.0 /100WBC Neutrophils # (Auto) 8.7 K/uL (2.0-7.4) Lymphocytes # (Auto) 1.0 K/uL (1.3-3.6) Monocytes # (Auto) 0.3 K/uL (0.3-1.0) Eosinophils # (Auto) 0.1 K/uL (0.0-0.5) Basophils # (Auto) 0.0 K/uL (0.0-0.1) Nucleated RBC Absolute Count (auto) 0.00 K/uL Human Chorionic Gonadotropin, Qual Negative (NEGATIVE) Helicobacter pylori IgG Antibody Positive (NEGATIVE) Influenza Virus Type A (PCR) Negative (NEGATIVE) Influenza Virus Type B (PCR) Negative (NEGATIVE) Urinalysis Test 03/11/19 09:02 Urine Color Yellow Urine Clarity Slightly-cloudy Urine pH 5.0 pH (4.8-9.5) Urine Specific Evergreen 1.026 Urine Protein 30 mg/dL (NEGATIVE) Urine Glucose (UA) Negative mg/dL (NEGATIVE) Urine Ketones Trace mg/dL (NEGATIVE) Urine Blood Small (NEGATIVE) Urine Nitrite Negative (NEGATIVE) Urine Bilirubin Negative (NEGATIVE) Urine Urobilinogen 2.0 mg/dL (0.2-1.9) Urine Leukocyte Esterase Negative (NEGATIVE) Urine RBC 5 /HPF (0-2/HPF) Urine WBC 4 /HPF (0-5/HPF) Urine Squamous Epithelial Cells Many /LPF (</=FEW) Urine Bacteria Few /HPF (NONE-FEW) Urine Mucus Few /HPF (NONE-FEW) EKG/Imaging Imaging [place] [facility] [place]IENT NAME: Radha Cali : 1990 MR: [id number] V: [id number] EXAM DATE: [id number] ORDERING PHYSICIAN: JANIS SAAB TECHNOLOGIST: Location: [facility] - [place] Patient: Radha Cali : 1990 Visit/Account:[id number] Date of Sevice: 03/11/2019 CHEST PA LAT Indication: cough Comparison: Chest x-ray 08/12/2016 Findings: Lungs: Clear. Mediastinum/pulmonary vasculature: Heart size and pulmonary vasculature are normal. Bones/soft tissues: Normal. IMPRESSION: Clear lungs. Report Dictated By: Shane Guzman at 03/11/2019 10:14 AM Report E-Signed By: Shane Guzman at 03/11/2019 10:15 AM WSN:[id number] ED Course/Re-evaluation ED Course 03/11/2019 9:19:11 am plan at this time will be to provide IV fluids IV Zofran will give DuoNeb for reactive airways disease we'll perform CBC CMP test chest x-ray. 03/11/2019 10:33:32 am symptoms have somewhat improved after DuoNeb treatment and nauseous but after IV fluids and Zofran. A 2nd liter of fluid repeat DuoNeb treatment patient positive for H. pylori so we'll treat this as an outpatient. 03/11/2019 12:11:57 pm patient improved will discharge home Decision to Disposition Date: March 11, 2019 Decision to Disposition Time: 12:12 Depart Departure Latest Vital Signs Vital Signs Date Time Temp Pulse Resp B/P (MAP) Pulse Ox O2 Delivery O2 Flow Rate FiO2 03/11/19 11:09 93 Room Air 03/11/19 11:09 94 14 03/11/19 09:30 117/72 (87) 03/11/19 09:04 97.9 Impression: Primary Impression: Nausea & vomiting Additional Impressions: Dehydration H. pylori infection Condition: Improved Disposition: HOME OR SELF-CARE Referrals: AAYUSH NUNEZ MD (PCP) New Scripts Ondansetron Hcl (ZOFRAN) 4 Mg Tablet 4 MG PO Q8H for Nausea, #15 TAB 0 Refills Prov: JANIS SAAB MD 03/11/19 Amoxicillin (AMOXICILLIN) 500 Mg Capsule 2 CAP PO BID for 14 Days, #56 CAPSULE 0 Refills Prov: JANIS SAAB MD 03/11/19 Clarithromycin (CLARITHROMYCIN) 500 Mg Tablet 500 MG PO BID, #28 TAB 0 Refills Prov: JANIS SAAB MD 03/11/19 Pantoprazole Sodium (PANTOPRAZOLE SODIUM) 40 Mg Tablet.dr 40 MG PO QDAY for 14 Days, #14 TAB.SR 0 Refills Prov: JANIS SAAB MD 03/11/19 Patient Instructions: Acute Nausea and Vomiting (DC), Helicobacter Pylori (GEN), Reactive Airways Disease (DC) Problem Qualifiers Primary Impression: Nausea & vomiting Vomiting type: unspecified Vomiting Intractability: unspecified Qualified Codes: R11.2 - Nausea with vomiting, unspecified JANIS SAAB MD March 11, 2019 09:01
[2019-03-11] MEDS ORDERED: NS(*) 0.9% 1000 ML BAG 1,000 ML IV ONE ×2 (09:14→11:05)
[2019-03-11] MEDS ORDERED: ONDANSETRON 4 MG/2 ML VIAL IVP ONE (09:15)
[2019-03-11] MEDS ORDERED: ALBUTEROL/IPRATROPIUM 3 ML NEB NEB ONE ×2 (09:15→11:05)
[2019-03-11 09:39] LABS: PLATELET COUNT, AUTOMATED 212 K/uL (150-450)
--- NOTE | 2019-03-11 10:18 | RADIOLOGY IMAGING REPORT ---
FACILITY: [facility] PATIENT NAME: Radha Cali : 1990 MR: [id number] V: [id number] EXAM DATE: ORDERING PHYSICIAN: JANIS SAAB TECHNOLOGIST: Location: [facility] - [place] Patient: Radha Cali : 1990 Visit/Account:[id number] Date of Sevice: 03/11/2019 CHEST PA LAT Indication: cough Comparison: Chest x-ray 08/12/2016 Findings: Lungs: Clear. Mediastinum/pulmonary vasculature: Heart size and pulmonary vasculature are normal. Bones/soft tissues: Normal. IMPRESSION: Clear lungs. Report Dictated By: Shane Guzman at 03/11/2019 10:14 AM Report E-Signed By: Shane Guzman at 03/11/2019 10:15 AM WSN:[id number]
[2019-03-11] MEDS ORDERED: ACETAMINOPHEN 325 MG TAB PO ONE (11:05)
[2019-03-11] MEDS ORDERED: CLAR-1 PO (11:29)
[2019-03-11] MEDS ORDERED: AMOX-362 PO (11:29)
[2019-03-11] MEDS ORDERED: PANT40TA65 PO (11:29)
[2019-03-11] MEDS ORDERED: ONDA4TAB97 PO (11:30)
[2019-03-11 12:12] VITALS: BP 117/59
[2019-03-11] MEDS ORDERED: ALBUTEROL 8 GM INHALER INH ONE (12:30)
== END 2019-03-11 12:35 | disposition home or self-care (01) ==
LOC: ER 09:15
DX: R11.2 Nausea with vomiting, unspecified (principal); E86.0 Dehydration; B96.81 Helicobacter pylori [H. pylori] as the cause of diseases classified elsewhere
CPT/HCPCS: 71046; 81001; 83690; 84703; 85025; 86677; 87502; 94640; 96361; 96374; 99284; J2405; J7030; J7620; 82040; 82247; 82310; 82374; 82435; 82565; 82947; 84075; 84132; 84155; 84295; 84450; 84460; 84520